=== PATIENT | male | born 1940 | race Caucasian/White ===

== ENCOUNTER 2018-10-04 19:12 | Emergency (ER) | payer MEDICARE, OTHER ==
[~2018-10-04] VITALS: Ht 167.6 cm; Wt 71.9 kg
[~2018-10-04 19:12] MED LIST: PEG15DRO4 OP
[2018-10-04 19:21] VITALS: Ht 167.6 cm; Wt 71.9 kg
[2018-10-04] MEDS ORDERED: SOD CHLORIDE 0.9% 1,000 ML IV STA (19:42)
--- NOTE | 2018-10-04 20:20 | ERD ---
ER Documentation Chief Complaint Chief Complaint BIBA from [facility],generalized weakness since 1700,c/o bilat leg pain HPI 78-year-old man with a history of Parkinson's dementia brought in by EMS from [facility] for generalized weakness x1 day. No other specifics provided although patient is asymptomatic, he denies LOC, no chest pain or shortness of breath, no fevers or chills, no blood per rectum or melena. Patient was trans ported here by EMS without further complications ROS All systems reviewed and are negative except as per history of present illness. Allergies Allergies: Coded Allergies: amantadine (Verified Allergy, Severe, 10/04/18) ciprofloxacin (Verified Allergy, Severe, 10/04/18) Sulfa (Sulfonamide Antibiotics) (Verified Allergy, Unknown, 10/04/18) PMhx/Soc Parkinson's dementia Medical and Surgical Hx: pt denies Surgical Hx Hx Cardiac Disorders: Yes (htn) Hx Miscellaneous Medical Probl: Yes (parkinsons) Hx Alcohol Use: No Hx Substance Use: No Hx Tobacco Use: No Smoking Status: Never smoker FmHx Family History: No diabetes Physical Exam Vitals Vital Signs Date Temp Pulse Resp B/P (MAP) Pulse Ox O2 O2 Flow FiO2 Time Delivery Rate 10/04/18 97.6 81 14 128/59 98 Room Air 22:09 (82) 10/04/18 97.6 75 18 149/82 98 Room Air 19:22 (104) 10/04/18 97.6 76 18 142/92 98 19:21 (109) Physical Exam Const: No acute distress, well-developed well-nourished, afebrile, nontoxic in appearance Resp: Clear to auscultation bilaterally Cardio: Regular rate and rhythm, no murmurs Abd: Soft, non tender, non distended. Normal bowel sounds Skin: No petechiae or rashes, no lacerations or hematomas noted Ext: No cyanosis, or edema, calves are symmetrical, distal pulses equal bilateral Neur: Awake and alert x2, no focal deficits or facial asymmetry, moving all extremities, able to answer questions and follow commands Psych: Normal Mood and Affect Result Diagram: 10/04/18193510/04/181935 Results 24 hrs Laboratory Tests Test 10/04/18 19:36 10/04/18 20:15 White Blood Count 7.0 10^3/ul Red Blood Count 3.77 10^6/ul Hemoglobin 11.4 g/dl Hematocrit 36.0 % Mean Corpuscular Volume 95.5 fl Mean Corpuscular Hemoglobin 30.2 pg Mean Corpuscular Hemoglobin Concent 31.7 g/dl Red Cell Distribution Width 15.9 % Platelet Count 215 10^3/UL Mean Platelet Volume 10.0 fl Immature Granulocytes % 0.300 % Neutrophils % 58.3 % Lymphocytes % 31.5 % Monocytes % 8.5 % Eosinophils % 1.1 % Basophils % 0.3 % Nucleated Red Blood Cells % 0.0 /100WBC Immature Granulocytes # 0.020 10^3/ul Neutrophils # 4.1 10^3/ul Lymphocytes # 2.2 10^3/ul Monocytes # 0.6 10^3/ul Eosinophils # 0.1 10^3/ul Basophils # 0.0 10^3/ul Nucleated Red Blood Cells # 0.0 10^3/ul Prothrombin Time 13.8 Sec Prothrombin Time Ratio 1.1 INR International Normalized Ratio 1.05 Activated Partial Thromboplast Time 27.7 Sec Sodium Level 137 mmol/L Potassium Level 4.5 mmol/L Chloride Level 102 mmol/L Carbon Dioxide Level 28 mmol/L Anion Gap 7 Blood Urea Nitrogen 17 mg/dl Creatinine 1.00 mg/dl Est Glomerular Filtrat Rate mL/min mL/min Glucose Level 150 mg/dl Calcium Level 8.4 mg/dl Total Bilirubin 0.4 mg/dl Direct Bilirubin 0.00 mg/dl Indirect Bilirubin 0.4 mg/dl Aspartate Amino Transf (AST/SGOT) 21 IU/L Alanine Aminotransferase (ALT/SGPT) 14 IU/L Alkaline Phosphatase 47 IU/L Troponin I < 0.012 ng/ml Total Protein 7.0 g/dl Albumin 3.5 g/dl Globulin 3.50 g/dl Albumin/Globulin Ratio 1.00 Lipase 76 U/L Urine Color JATINDER Urine Clarity CLEAR Urine pH 6.0 Urine Specific [place] 1.016 Urine Ketones TRACE mg/dL Urine Nitrite NEGATIVE mg/dL Urine Bilirubin NEGATIVE mg/dL Urine Urobilinogen NEGATIVE mg/dL Urine Leukocyte Esterase NEGATIVE Red/ul Urine Hemoglobin NEGATIVE mg/dL Urine Glucose NEGATIVE mg/dL Urine Total Protein NEGATIVE mg/dl Current Medications Medications Dose Sig/Willem Start Time Status Last (Trade) Ordered Route PRN Stop Time Admin Dose Reason Admin Sodium 1,000 ml @ Q1H STAT 10/04/18 DC 10/04/18 Chloride 1,000 mls/hr IV 19:42 19:47 10/04/18 20:41 Procedures/MDM IV line was established patient was placed on bus driver/monitor rhythm strip revealed a sinus rhythm at about 70 bpm with upright P and T waves. Patient was afebrile I administered 1 L normal saline IV. EKG performed, read by me: 70 bpm, normal sinus rhythm, normal axis, no acute ST segment changes, narrow QRS complex, with good R-wave progression in precordial leads. CBC and electrolytes are normal, liver function tests were normal, troponin was negative, urinalysis was negative for infection. Patient's presentation suggests mild dehydration although his vital signs are normal and he looks well, he has no complaints and will be discharged back to [place] [facility]. Differential diagnoses considered, included but not limited to acute coronary syndrome, pulmonary embolism, aortic dissection, abdominal aortic aneurysm, sepsis, stroke, meningitis, encephalitis, pneumonia, appendicitis, cholecystitis, bowel obstruction, pyelonephritis, nephrolithiasis, cystitis, as well as metabolic, hematologic, and electrolyte abnormalities. As well as abscess, cellulitis, fractures, and dislocations. Patient feels much better at this time, and vital signs are normal, symptoms have improved. I did give strict instructions to return to the ED if symptoms continue or worsen, patient will otherwise follow-up with primary care physician. Patient understood instructions and agreed to plan. Disclaimer: Inadvertent spelling and grammatical errors are likely due to EHR/dictation software use and do not reflect on the overall quality of patient care. Also, please note that the electronic time recorded on this note does not necessarily reflect the actual time of the patient encounter. Departure Diagnosis: Primary Impression: Acute weakness Additional Impression: Acute dehydration Condition: Good AMY TO MD Oct 04, 2018 20:20
[2018-10-04 22:09] VITALS: BP 128/59; PULSE 81; RESP 14
== END 2018-10-04 22:10 | disposition home or self-care (01) ==
LOC: E/R 19:12
DX: E86.0 Dehydration (principal); I10 Essential (primary) hypertension; G20 Parkinson's disease; M79.604 Pain in right leg
CPT/HCPCS: 36415; 80053; 81003; 83690; 84484; 85025; 85610; 85730; 86850; 86900; 86901; 87086; 93005; 99284; J7030

== ENCOUNTER 2018-10-08 14:37 | Emergency (ER) | payer MEDICARE, OTHER ==
[~2018-10-08] VITALS: Ht 170.2 cm; Wt 65.0 kg
[2018-10-08 14:50] VITALS: BP 101/50; PULSE 86; RESP 18; Ht 170.2 cm; Wt 65.0 kg
--- NOTE | 2018-10-08 16:19 | ERD ---
ER Documentation Chief Complaint Chief Complaint BIB RA FOR EVAL OF RT EYE PRESSURE. HX OF GLAUCOMA. NO LOSS OF VISION ROS All systems reviewed and are negative except as per history of present illness. Medications Home Meds Active Scripts Peg 400/Hypromellose/Glycerin (ARTIFICIAL TEARS DROPS) 15 Ml Drops, 15 ML OP BID PRN for DRY EYES for 7 Days, #1 BOTTLE Prov:JN DE LEÓN DO 10/08/18 Allergies Allergies: Coded Allergies: amantadine (Verified Allergy, Severe, 10/08/18) ciprofloxacin (Verified Allergy, Severe, 10/08/18) Sulfa (Sulfonamide Antibiotics) (Verified Allergy, Unknown, 10/08/18) PMhx/Soc Hx Cardiac Disorders: Yes (htn) Hx Miscellaneous Medical Probl: Yes (parkinsons) Hx Alcohol Use: No Hx Substance Use: No Hx Tobacco Use: No Smoking Status: Never smoker Physical Exam Vitals Vital Signs Date Temp Pulse Resp B/P (MAP) Pulse Ox O2 O2 Flow FiO2 Time Delivery Rate 10/08/18 97.9 86 18 101/50 99 14:50 (67) Physical Exam Const: No acute distress Head: Atraumatic Eyes: Normal Conjunctiva ENT: Normal External Ears, Nose and Mouth. Neck: Full range of motion. No meningismus. Resp: Clear to auscultation bilaterally Cardio: Regular rate and rhythm, no murmurs Abd: Soft, non tender, non distended. Normal bowel sounds Skin: No petechiae or rashes Back: No midline or flank tenderness Ext: No cyanosis, or edema Neur: Awake and alert Psych: Normal Mood and Affect Departure Diagnosis: Primary Impression: Eye pain Laterality: right Qualified Codes: H57.11 - Ocular pain, right eye Condition: Fair Patient Instructions: What Is Glaucoma? Referrals: [facility] YOU HAVE RECEIVED A MEDICAL SCREENING EXAM AND THE RESULTS INDICATE THAT YOU DO NOT HAVE A CONDITION THAT REQUIRES URGENT TREATMENT IN THE EMERGENCY DEPARTMENT. FURTHER EVALUATION AND TREATMENT OF YOUR CONDITION CAN WAIT UNTIL YOU ARE SEEN IN YOUR DOCTORS OFFICE WITHIN THE NEXT 1-2 DAYS. IT IS YOUR RESPONSIBILITY TO MAKE AN APPOINTMENT FOR FOLOW-UP CARE. IF YOU HAVE A PRIMARY DOCTOR --you should call your primary doctor and schedule an appointment IF YOU DO NOT HAVE A PRIMARY DOCTOR YOU CAN CALL OUR PHYSICIAN REFERRAL HOTLINE AT IF YOU CAN NOT AFFORD TO SEE A PHYSICIAN YOU CAN CHOSE FROM THE FOLLOWING [facility] [address] [facility] [address] [facility] [address] [facility] [address] [facility]. [facility] [address] [facility]. [facility] [address] Additional Instructions: Call your primary care doctor TOMORROW for an appointment during the next 1-2 days.See the doctor sooner or return here if your condition worsens before your appointment time. JN DE LEÓN DO Oct 08, 2018 16:19
[2018-10-08] MEDS ORDERED: ENTACAPONE 200 MG TAB PO ONE (17:30)
[2018-10-08] MEDS ORDERED: CARBIDOPA/LEVODOPA (25/250) TAB PO ONE (17:30)
== END 2018-10-08 19:00 | disposition home or self-care (01) ==
LOC: FTE 14:37
DX: H57.11 Ocular pain, right eye (principal); I10 Essential (primary) hypertension; G20 Parkinson's disease
CPT/HCPCS: 99283

== ENCOUNTER 2018-10-29 14:32 | Emergency (ER) | payer MEDICARE, OTHER ==
[~2018-10-29] VITALS: Ht 165.1 cm; Wt 63.6 kg
[~2018-10-29 14:32] MED LIST changes: +ACET-2047 PO; +CARB1TAB3 ORAL; +CEPH-443 PO; +CLOP75TA28 ORAL; +COMBIG5 OP; +DIGO250T ORAL; +FOLI-49 PO; +LATA2.5D2 OP; +LOSA50TA14 ORAL; +PROP30DR BOTH EYES; +QUET25TA33 ORAL; +ROPI1TAB PO; +SIN50200 ORAL
[2018-10-29 14:35] VITALS: Ht 165.1 cm; Wt 63.6 kg
[2018-10-29] MEDS ORDERED: SOD CHLORIDE 0.9% 500 ML IV ONE (15:30)
[2018-10-29] MEDS ORDERED: CEFTRIAXONE 1 GM/50 ML (PMX) 50 ML IVPB ONE (17:30)
[2018-10-29] MEDS ORDERED: ENTACAPONE 200 MG TAB PO ONE ×2 (18:00)
[2018-10-29] MEDS ORDERED: CARBIDOPA/LEVODOPA (25/250) TAB PO ONE (18:00)
[2018-10-29 18:40] VITALS: BP 159/75; PULSE 55; RESP 18
== END 2018-10-29 18:49 | disposition home or self-care (01) ==
LOC: E/R 14:32
DX: N30.01 Acute cystitis with hematuria (principal); R40.2142 Coma scale, eyes open, spontaneous, at arrival to emergency department; R40.2362 Coma scale, best motor response, obeys commands, at arrival to emergency department; R40.2252 Coma scale, best verbal response, oriented, at arrival to emergency department; D64.9 Anemia, unspecified; R79.89 Other specified abnormal findings of blood chemistry; E86.0 Dehydration; I10 Essential (primary) hypertension; G20 Parkinson's disease; Z79.01 Long term (current) use of anticoagulants
CPT/HCPCS: 36415; 71045; 80053; 81001; 82962; 83880; 84484; 85025; 85610; 93005; 96374; 99285; J0696; J7040

== ENCOUNTER 2018-10-31 14:23 | Emergency (ER) | payer MEDICARE ==
[~2018-10-31] VITALS: Ht 170.2 cm; Wt 70.0 kg
[~2018-10-31 14:23] MED LIST changes: -PEG15DRO4 OP
[2018-10-31 14:55] VITALS: Ht 170.2 cm; Wt 70.0 kg
[2018-10-31] MEDS ORDERED: FLUDROCORTISONE 0.1 MG TAB PO ONE (15:30)
[2018-10-31 16:20] VITALS: BP 131/69; PULSE 71; RESP 16
== END 2018-10-31 16:20 | disposition home or self-care (01) ==
LOC: E/R 14:23
DX: I95.9 Hypotension, unspecified (principal); E27.9 Disorder of adrenal gland, unspecified; I10 Essential (primary) hypertension; G20 Parkinson's disease
CPT/HCPCS: 99283

== ENCOUNTER 2018-11-09 13:06 | Emergency (ER) | payer MEDICARE ==
[~2018-11-09] VITALS: Ht 162.6 cm; Wt 65.0 kg
[~2018-11-09 13:06] MED LIST changes: -ACET-2047 PO; +ACET-2343 PO; +CIPR500T4 PO; +PHEN-538 PO
[2018-11-09 13:19] VITALS: Ht 162.6 cm; Wt 65.0 kg
[2018-11-09] MEDS ORDERED: PHENAZOPYRIDINE 100 MG TAB PO ONE (13:30)
[2018-11-09] MEDS ORDERED: CIPROFLOXACIN 500 MG TAB PO ONE (13:30)
[2018-11-09] MEDS ORDERED: NITROFURANTOIN (SR) 100 MG CAP PO ONE (13:30)
[2018-11-09 15:49] VITALS: BP 140/79; PULSE 87; RESP 16
== END 2018-11-09 16:15 | disposition home or self-care (01) ==
LOC: E/R 13:06
DX: N30.90 Cystitis, unspecified without hematuria (principal); I10 Essential (primary) hypertension; G20 Parkinson's disease; Z79.02 Long term (current) use of antithrombotics/antiplatelets
CPT/HCPCS: 81003; 87086; 99283